=== PATIENT | male | born 1980 | race Two or more races ===

== ENCOUNTER 2019-01-20 22:33 | Emergency (ER) | payer MEDICAID ==
[~2019-01-20] VITALS: Ht 175.3 cm; Wt 75.3 kg
[2019-01-20 22:54] VITALS: BP 146/87
== END 2019-01-21 00:46 | disposition home or self-care (01) ==
LOC: ER 22:47
DX: S86.811A Strain of other muscle(s) and tendon(s) at lower leg level, right leg, initial encounter (principal); V49.49XA Driver injured in collision with other motor vehicles in traffic accident, initial encounter; Y93.89 Activity, other specified; Y92.481 Parking lot as the place of occurrence of the external cause; Y99.8 Other external cause status
CPT/HCPCS: 73564-TC